=== PATIENT | female | born 1935 ===

== ENCOUNTER 2022-04-26 10:35 | Emergency (ER) | payer MEDICARE ==
[~2022-04-26] VITALS: Ht 170.2 cm; Wt 63.6 kg
[2022-04-26 10:47] VITALS: BP 179/87; PULSE 60; TEMP 98.6
[2022-04-26 11:18] LABS: COLLECTION METHOD CLEAN CATCH
[2022-04-26 12:10] LABS: MUCOUS Present (NOT PRESENT); PH 7 (5-8); SQUAMOUS EPITHELIAL 0-2 /hpf (0-10); URINE APPEARANCE Clear (CLEAR/HAZY); URINE BACTERIA None Seen /hpf (NONE SEEN); URINE COLOR Yellow (YELLOW); URINE PROTEIN(semi-quant) 1+ (NEGATIVE)
[2022-04-26 12:11] LABS: URINE BILIRUBIN Negative (NEGATIVE); URINE BLOOD Negative (NEGATIVE); URINE GLUCOSE Negative (NEGATIVE); URINE KETONE Negative (NEGATIVE); URINE LEUKOCYTE ESTERASE Trace (NEGATIVE); URINE NITRATE Negative (NEGATIVE); URINE UROBILINOGEN Negative (NEGATIVE)
== END 2022-04-26 12:49 | disposition left against medical advice (07) ==
LOC: COL.ER 10:35
PROVIDERS: Nurse Practitioner Primary Care
DX: R30.0 Dysuria (principal)